=== PATIENT | female | born 1945 | race Two or more races ===

== ENCOUNTER 2018-12-15 22:26 | Inpatient (IN) | payer OTHER, MEDICAID ==
[~2018-12-15] VITALS: Ht 147.3 cm; Wt 59.0 kg
[2018-12-15 22:49] VITALS: Ht 147.3 cm; Wt 59.0 kg
--- NOTE | 2018-12-15 23:08 | NUR ---
PT C/O ABD X5 DAYS. PT REPORTS N/V X3 DAYS. PT STS THAT SHE GETS PARACENTESIS EVERY FRIDAY. PT REPORTS GETTING PAIN THE DAY AFTER LAST PARACENTESIS X7DAYS AGO. ABD SOFT AND DISTENDED. TENDERNESS NOTED IN ALL 4 QUADRANTS. PT REPORTS PAIN GENERALIZED 10/10 NON-RADIATING PAIN. AT [facility] WILL CONTINUE TO MONITOR.
--- NOTE | 2018-12-15 23:41 | NUR ---
X-RAY AT BEDSIDE
--- NOTE | 2018-12-15 23:48 | NUR ---
PT AWAKE AND ALERT, LAYING IN POSITION OF COMFORT. VSS, RESPS E/U, NAD NOTED AT THIS TIME. DAUGHTER AT BEDSIDE. CALL LIGHT W/IN REACH. WILL CONTINUE MONITOR.
[2018-12-16] VITALS (9 sets, daily range): BP systolic 83–113; BP diastolic 30–50
[2018-12-16 00:33] LABS: CALCIUM 8.9 mg/dL (8.5-10.1); CARBON DIOXIDE 13.5 mmol/L (21-32); CHLORIDE SERUM 100 mmol/L (98-107); CREATININE SERUM 3.4 mg/dL (0.6-1.0); GLUCOSE SERUM 142 mg/dL (74-106); POTASSIUM SERUM 4.5 mmol/L (3.5-5.1); SODIUM SERUM 129 mmol/L (136-145)
[2018-12-16 00:38] LABS: ALBUMIN 2.6 g/dL (3.4-5.0); ALKALINE PHOSPHATASE 281 U/L (46-116); ALT/SGPT 61 U/L (14-59); AST/SGOT 54 U/L (15-37); BILIRUBIN TOTAL 2.1 mg/dL (0.20-1.00); TOTAL PROTEIN, SERUM 5.9 g/dL (6.4-8.2)
--- NOTE | 2018-12-16 00:38 | NUR ---
PT AWAKE AND ALERT, LAYING IN POSITION OF COMFORT. 2 BED RAILS UP, BED IN LOW AND LOCKED POSITION. CALL LIGHT W/IN REACH. DAUGHTER AT BEDSIDE. VSS, RESPS E/U, NAD NOTED AT THIS TIME. WILL CONTINUE TO MONITOR.
[2018-12-16 00:47] LABS: BASOPHIL % 0 % (0-2); PLATELET COUNT 87 x10^3mcL (130-400); RED CELL DISTRIBUTION WIDTH 18.1 % (11.5-14.5)
[2018-12-16] MEDS ORDERED: ALDACTONE50 MG PO (01:28)
[2018-12-16] MEDS ORDERED: FUROSEMIDE20 MG PO (01:29)
[2018-12-16] MEDS ORDERED: BACTRIM DS1 TAB PO (01:30)
[2018-12-16] MEDS ORDERED: RANITIDINE HCL150 M1 PO (01:30)
[2018-12-16] MEDS ORDERED: SPIRONOLACTONE100 MG PO (01:30)
[2018-12-16] MEDS ORDERED: ONDANSETRON4 M3 PO (01:31)
[2018-12-16] MEDS ORDERED: PROPRANOLOL HCL10 MG PO (01:31)
[2018-12-16] MEDS ORDERED: GOOD SENSE OMEP20 MG PO (01:31)
[2018-12-16] MEDS ORDERED: TRAMADOL HCL50 MG PO (01:32)
[2018-12-16] MEDS ORDERED: [UNRECOGNIZED DRUG - REMARK] OP (01:33)
[2018-12-16] MEDS ORDERED: XIFAXAN550 M1 PO (01:33)
[2018-12-16] MEDS ORDERED: MIDODRINE HCL10 MG PO (01:33)
[2018-12-16 01:50] LABS: MAGNESIUM 2.2 mg/dL (1.8-2.4); PHOSPHOROUS 5.5 mg/dL (2.5-4.9)
[2018-12-16 01:56] LABS: T3 TOTAL 0.35 ng/mL
[2018-12-16 01:57] LABS: CHOLESTEROL/HDL RATIO 2.9
[2018-12-16 02:00] LABS: FREE T4 1.29 ng/dL (0.76-1.46)
[2018-12-16 02:03] LABS: FREE THYROXINE INDEX 1.7 ug/dL (1.4-4.5); T4(THYROXINE) 4.3 ug/dL (4.7-13.3)
--- NOTE | 2018-12-16 02:30 | NUR ---
REPORT GIVEN TO KWAME PUENTES
--- NOTE | 2018-12-16 03:30 | NUR ---
RECEIVED PT FROM ED, NO ACUTE DISTRESS. ORIENTED PT TO ROOM. BED IN LOWEST POSITION, SIDE RAILS UP X2, SEIZURE PRECAUTIONS IN PLACE, CALL LIGHT WITHIN REACH. WILL CONTINUE TO MONITOR.
--- NOTE | 2018-12-16 06:07 | NUR ---
PT SLEPT PERIODICALLY THROUGHOUT NIGHT, NO ACUTE DISTRESS. ALL NEEDS MET AND ATTENDED TO. NO SIGNIFICANT CHANGES. RIGHT CHEST PORTACATH PATENT AND INTACT. BED IN LOWEST POSITION, SIDE RAILS UP X2, CALL LIGHT WITHIN REACH. WILL ENDORSE CARE TO ONCOMING NURSE.
[2018-12-16 07:04] LABS: BASOPHIL % 0.1 % (0-2)
[2018-12-16 07:12] LABS: PLATELET COUNT 78 x10^3mcL (130-400); RED CELL DISTRIBUTION WIDTH 18.3 % (11.5-14.5)
[2018-12-16 07:14] LABS: CALCIUM 8.7 mg/dL (8.5-10.1); CARBON DIOXIDE 13.2 mmol/L (21-32); CHLORIDE SERUM 102 mmol/L (98-107); CREATININE SERUM 3.5 mg/dL (0.6-1.0); GLUCOSE SERUM 133 mg/dL (74-106); MAGNESIUM 2.2 mg/dL (1.8-2.4); PHOSPHOROUS 5.4 mg/dL (2.5-4.9); POTASSIUM SERUM 4.3 mmol/L (3.5-5.1); SODIUM SERUM 131 mmol/L (136-145)
--- NOTE | 2018-12-16 09:40 | NUR ---
DR HAYES AT BEDSIDE, CONSENT OBTAINED [facility] PATIENT TO PERFORM PARACENTESIS. PROCEDURE DONE, 3L OUTPUT. ASCITIS FLUID SENT DOWN FOR LAB/PATHO. PATIENT TOLERATED WELL.
[2018-12-16 13:23] LABS: SOURCE FLUID ASCITES
[2018-12-16 13:24] LABS: APPEARANCE FLUID TURBID; COLOR FLUID YELLOW; WBC FLUID 2150 /cumm
[2018-12-16 13:25] LABS: LYMPHOCYTE FLUID 3 %; MONOCYTE FLUID 7 %; RBC FLUID 1670 /cumm
[2018-12-16 13:29] LABS: microscopic required? NO
[2018-12-16 13:30] LABS: SOURCE FLUID ASCITES
[2018-12-16 13:51] LABS: urine erythrocyte NEGATIVE (NEGATIVE)
[2018-12-16 13:59] LABS: AMPHETAMINE QUAL UR NONE DETECTED (See below)
--- NOTE | 2018-12-16 18:15 | NUR ---
PATIENT WITH NO ACUTE DISTRESS, ABD DISTENDED/SOFT. PATIENT C/O NAUSEA AND ZOFRAN GIVEN. BANDAID TO RT SIDE ABD CDI. PORTACATH SITE WNL AND RUNNING 1/2NS WITH NABICARB AT 75ML/HR PER ORDER. DAUGHTER AND SON AT BEDSIDE. CALL LIGHT WITHIN RAECH. WILL CONT TO MONITOR AND ENDORSE TO NOC NURSE.
--- NOTE | 2018-12-16 19:36 | NUR ---
DAUGHTER WANTED TO SATYS OVERNIGHT,BRET SAYS OK.
--- NOTE | 2018-12-16 19:42 | NUR ---
SHIFT REASSESSMENT DONE.PATIENTA/O X 3.CONFUSED AT TIMES.BREATHING EASY AT THIS TIME.CANE AT BEDSIDE.1/2 NS WITH NA BICARB INFUSING.R CHEST PORT A CATH.ATB SCHEDULED.TELE 3 SR.R UPPER ARM INCISION,STITCHED 12/12 STEM CELL THERAPY.LOW H AND H, ON PROCRIT.BLE EDEMA NOTED.DAUGHTER CHANGED HER MIND,SHE WILL NOT STAY OVER TONIGHT,SAYS SHE IS SO TIRED.CALL LIGHT IN REACH FOR ASSISTANCE.
--- NOTE | 2018-12-16 22:11 | NUR ---
PM MEDS GIVEN,SWALLOWS WELL.DAUGHTER LEFT FOR TONIGHT.
[2018-12-17] VITALS (9 sets, daily range): BP systolic 86–112; BP diastolic 31–50
--- NOTE | 2018-12-17 02:00 | NUR ---
CHECKED AT INTERVALS FOR NEEDS AND SAFETY.IVF INFUSING WELL.
--- NOTE | 2018-12-17 06:15 | NUR ---
PATIENT I AND O MEASURED.DAUGHTER IS COMING TO VISIT.WANTED HER PAJAMA FROM HOME.
[2018-12-17 07:41] LABS: BASOPHIL % 0.1 % (0-2)
[2018-12-17 07:47] LABS: PLATELET COUNT 72 x10^3mcL (130-400); RED CELL DISTRIBUTION WIDTH 18.1 % (11.5-14.5)
[2018-12-17 07:54] LABS: CALCIUM 8.4 mg/dL (8.5-10.1); CARBON DIOXIDE 14.8 mmol/L (21-32); CHLORIDE SERUM 102 mmol/L (98-107); CREATININE SERUM 3.6 mg/dL (0.6-1.0); GLUCOSE SERUM 99 mg/dL (74-106); IRON 46 ug/dL (50-170); MAGNESIUM 2.1 mg/dL (1.8-2.4); PHOSPHOROUS 5.4 mg/dL (2.5-4.9); POTASSIUM SERUM 4.5 mmol/L (3.5-5.1); SODIUM SERUM 131 mmol/L (136-145)
[2018-12-17 08:06] LABS: TOTAL IRON BINDING CAPACITY 77 ug/dL (250-450)
--- NOTE | 2018-12-17 08:20 | NUR ---
PATIENT ALERT/ORIENTED, SITTING UP EDGE OF BED, TOLERATING BREAKFAST MEAL WELL. SZ PREC IN PLACE, BED RAILS PADDED. TELE [address], DENIES CP. LUNGS SOMEWHAT DIM TO BASES OTHERWISE CTA, NO RESP DISTRESS NOTED ON RA. BREATHING E/U. PERIPHERLA PULSES PALAPBLE, BLE EDEMA +2. BOWEL SOUNDS ACTVE, ABD DISTENDED AND FIRM, ABD TENDER. BANDAID TO RT SIDE ABDOMEN CDI. RT UPPER ARM WITH STITCHED INCISION HEALING, LIBRA. CENTRAL LINE PORTACATH TO RT UPPER CHEST SITE WNL. CALL LIGHT WITHIN REACH. PER DR HAYES, DC IV FLUIDS AND ORDER MADE FOR PARACENTESIS TOMORROW MORNING. PATIENT AND DAUGHTER AT BEDSIDE AWARE.
--- NOTE | 2018-12-17 11:40 | NUR ---
SPOKE TO DR LOCKETT. ORDER RECIEVED FOR OKAY TO USE CENTRAL LINE PORT. LAB AT BEDSIDE OBTAINING BLOOD DRAWS, ATTEMPTED TO DRAW BLOOD THROUGH CENTRAL LINE. NS FLUSHING WELL BUT NO BLOOD RETURN. TYPE &SCREEN BLOOD FOR LAB OBTAINED. DAUGHTER AT BEDSIDE REQUESTING FOR PATIENT TO DIP FEET IN SALT WATER "TO HELP WITH SWELLING", PER DR LOCKETT OKAY FOR PATIENT. WAITING FOR PRBC UNITS TO BE READY BEFORE TRANSFUSING PER ORDER.
[2018-12-17 12:50] LABS: ALKALINE PHOSPHATASE 262 U/L (46-116); AST/SGOT 36 U/L (15-37); BILIRUBIN TOTAL 1.88 mg/dL (0.20-1.00); CALCIUM 8.1 mg/dL (8.5-10.1); CARBON DIOXIDE 14.6 mmol/L (21-32); CHLORIDE SERUM 100 mmol/L (98-107); CREATININE SERUM 3.6 mg/dL (0.6-1.0); GLUCOSE SERUM 154 mg/dL (74-106); POTASSIUM SERUM 4.3 mmol/L (3.5-5.1); SODIUM SERUM 128 mmol/L (136-145)
[2018-12-17 13:04] LABS: ALBUMIN 2.3 g/dL (3.4-5.0); TOTAL PROTEIN, SERUM 5.5 g/dL (6.4-8.2)
[2018-12-17 13:12] LABS: ALT/SGPT 45 U/L (14-59)
--- NOTE | 2018-12-17 13:22 | NUR ---
PER DR CHOI (NEPHRO), CONTINUE IV FLUID THERAPY 1/2NS + NA BICARB AT 75ML/HR. FLUIDS REORDERED. IV RESTARTED ON PATIENT. PATIENT TOLERATED LUNCH MEAL WELL, ATE ABOUT 50%. REPOSITIONED IN BED TO COMFORT. DAUGHTER AT BEDSIDE.
[2018-12-17 14:04] LABS: BASOPHIL % 0 % (0-2); PLATELET COUNT 85 x10^3mcL (130-400); RED CELL DISTRIBUTION WIDTH 18.1 % (11.5-14.5)
--- NOTE | 2018-12-17 14:40 | NUR ---
BLOOD TRANSFUSION CONSENT SIGNED BY PATIENT, PRBC UNIT 1 OF 2 PICKED UP FROM BLOOD BANK. VERIFIED WITH SECONDARY RN MEKHI AT BEDSIDE. PRE VITALS TAKEN AND TYLENOL/BENEDRYL GIVEN TO PATIENT. PROCEDURE EXPLAINED TO PATIENT AND DAUGHTER AT BEDSIDE, VERBALIZED UNDERSTANDING. IV SITE PORTACATH WNL. NO ABNORMAL/ADVERSE REACTIONS OBSERVED AFTER 15 MINUTES, VITALS TAKEN AND CHARTED. RATE INCREASED. PATIENT TOLERATING WELL SO FAR. WILL CONT TO MONITOR.
--- NOTE | 2018-12-17 15:10 | NUR ---
PATIENT FOUND IN BED WITH HUB NEEDLE DISLODGED AND MODERATE AMOUNT BLOOD LEAKAGE FROM INFUSION. DAUGHTER AT BEDSIDE STATES SHE DOES NOT KNOW WHAT HAPPENED SHE WAS ASLEEP ON CHAIR. PATIENT CLEANSED, LINENS CHANGED. NO ACTIVE BLEEDING OBSERVED TO CENTRAL PORT SITE, MILD ECCHYMOSIS NOTED . PER PATIENT, SHE SAID SHE WAS JUST TRYING TO REMOVE THE ADHESIVE/TAPE OF PORTACATH IT WAS BOTHERING HER AND PAINFUL SOMETIMES. NEW HUB NEEDLE APPLIED, NS FLUSHED, SITE WNL. BLOOD TRANSFUSION RESTARTED. WILL CONT TO MONITOR.
--- NOTE | 2018-12-17 17:12 | NUR ---
SPOKE TO PHARMACIST REGARDING FERRLICIT IV, RECOMMENDED TO FINISH BLOOD TRANSFUSION UNITS BEFORE GIVING FERRLICIT. WILL ENDORSE TO NOC NURSE TO CALL PHARMACY WHEN SECOND UNIT PRBC IS ALMOST COMPLETE TO PROMP THEM TO PREPARE FERRLICIT IV IT IS GOOD FOR ONLY 4 HOURS.
--- NOTE | 2018-12-17 18:10 | NUR ---
FIRST UNIT PRBC TRANSFUSION COMPLETE, PATIENT TOLERATED WELL. CENTRAL PORTACATH SITE WNL. DENIES ANY ABNORMAL/ADVERSE REACTIONS. SECOND UNIT PRBC RETRIEVED FROM BLOOD BANK, VERIFIED WITH SECOND RN AT BEDSIDE. NO REACTION AFTER 15MINUTES. WILL CONT TO MONITOR AND ENDORSE TO NOC NURSE.
--- NOTE | 2018-12-17 19:55 | NUR ---
SHIFT REASSESSMENT DONE.PATIENT ALERT AND ORIENTED.PATIENT RECEIVING PRBC AT THIS TIME,SECOND UNIT.NO REACTION SO FAR.TELE 3 SR.DISTENDED ABD,FIRM.FOR PARACENTESIS IN AM,ALSO PIGTAIL INSERTION.,R UPPER ARM INCISION STITCHED 12/12 STEM CELL THERAPY.CALL LIGHT IN REACH.
--- NOTE | 2018-12-17 20:27 | NUR ---
DR COPPOLA MADE AWARE,LASIX AFTER BLOOD TRANSFUSION,NONE ORDER SINCE START OF PRBC.
--- NOTE | 2018-12-17 21:23 | NUR ---
PRBC COMPLETED WITH NO INCIDENT,LASIX GIVEN ALSO.IV FLUSHES EASILY.
--- NOTE | 2018-12-17 21:25 | NUR ---
FERLICIT INFUSING AT THIS TIME,ALL PM MEDS GIVEN WITHOUT ANY INCIDENT.DAUGHTER STAYING FOR A FEW HOURS TONIGHT.PATIENT MADE AWARE OF PARACENTESIS IN AM AND PIG TAIL INSERTION.
[2018-12-17 21:57] LABS: BASOPHIL % 0 % (0-2); PLATELET COUNT 76 x10^3mcL (130-400); RED CELL DISTRIBUTION WIDTH 17.6 % (11.5-14.5)
--- NOTE | 2018-12-18 02:38 | NUR ---
ASSISTED TO BSC BY UTILITY WORKER PRODUCTION,VOIDING.IVF 1/2 NS BICARB INFUSING WELL.,R CHEST PORTACATH.
[2018-12-18 05:35] VITALS: BP 114/50
--- NOTE | 2018-12-18 05:44 | NUR ---
PATIENT REMAINS NPO FOR US ABD TODAY.US GUIDED PARACENTESIS,AND PIGTAIL TODAY,CONSENT IN CHART.WILL REPORT TO DAY SHIFT TO JUST HOLD THE TRAY/FOOD.DAUGHTER WILL BE HERE EARLY.
[2018-12-18 06:28] LABS: BASOPHIL % 0.1 % (0-2)
[2018-12-18 06:32] LABS: PLATELET COUNT 68 x10^3mcL (130-400); RED CELL DISTRIBUTION WIDTH 17.7 % (11.5-14.5)
[2018-12-18 06:47] LABS: ALKALINE PHOSPHATASE 242 U/L (46-116); ALT/SGPT 36 U/L (14-59); AST/SGOT 32 U/L (15-37); BILIRUBIN DIRECT 1.71 mg/dL (0.0-0.2); BILIRUBIN TOTAL 3.56 mg/dL (0.20-1.00); CALCIUM 8.2 mg/dL (8.5-10.1); CHLORIDE SERUM 99 mmol/L (98-107); CREATININE SERUM 3.3 mg/dL (0.6-1.0); GLUCOSE SERUM 85 mg/dL (74-106); MAGNESIUM 2.1 mg/dL (1.8-2.4); PHOSPHOROUS 4.9 mg/dL (2.5-4.9); POTASSIUM SERUM 4.4 mmol/L (3.5-5.1); SODIUM SERUM 130 mmol/L (136-145)
[2018-12-18 07:01] LABS: TOTAL PROTEIN, SERUM 5.1 g/dL (6.4-8.2)
--- NOTE | 2018-12-18 07:39 | NUR ---
RECEIVED ASLEEP BUT AROUSABLE. NO ACUTE RESP. DISTRESS NOTED. VS STABLE. NO C/O PAIN OR DISCOMFORT AT THIS TIME. IVF INFUSING WELL AND SITE CLEAR. CALL LIGHT WITHIN REACH. WILL CONTINUE WITH PLAN OF CARE.
[2018-12-18 08:14] VITALS: BP 98/53
--- NOTE | 2018-12-18 11:30 | NUR ---
DRESSING TO RT PORTACATH CHANGED. CATH FLUSHED AND PATENT.
[2018-12-18 11:49] VITALS: BP 114/49
--- NOTE | 2018-12-18 13:00 | NUR ---
PT LEFT TO RADILOGY FOR PARACENTESIS WITH PIGTAIL PLACEMENT. LEFT IN NO ACUTE DISTRESS. AWAKE, ALERT AND ORIENTED. NO /O PAIN OR DISCOMFORT.
[2018-12-18 15:16] VITALS: BP 117/57
--- NOTE | 2018-12-18 15:19 | NUR ---
Initial Nutrition Assessment: Viviana Briceñoia [place] Rm 244B Dx: Kidney Failure, Hepatic Encephalopathy, Acities PMHx: DM, HTN, Chronic kidney disease, Chronic liver disease PSHx: Cholecystecomy, other (hysterectomy) Labs:Na 130L, CO2 18.0L, BUN 66.0H, Creat. 3.3H, Alb. 2.0L, Ca 8.2L, Bili. 3.56H, WBC 3.7L, Hgb. 10.7L, Hct 30L Meds: Colace, Humulin, Levaquin, Procrit, Prilosec, Sodium bicarbonate, Zofran Diet: NPO due to surgery today (12/18) PO intake since admission: (12/16) Renal 85%, (12/17) Renal 50% Ht: 147.3cm, 57in Wt: 59kg, 129# BMI: 27.2kg/m2 (Overweight) Bed scale: 129# IBW: 135#, 61kg %IBW: 95% UBW: pt was not sure Age: 73/F Food Allergies: NKFA Skin: R upper arm incision stitched/stem cell therapy. Viral: 19 Edema: BLE edema GI: Last BM: 12/17/18 Per H&P: This patient is a 73 year old female with PMH of DM, HTN, CKD and liver disease presented to the ED with abdominal pain and abdominal distension. Abdominal pain is difffuse, 7/10 intensity, constant pain. Per her daughter, patient appeared to be little confused before she came into the hospital. Patient c/o nausea and vomitting 2 days ago. No hematemesis or krystal. No c/o fever, loss of consciousness, dizziness, chest pain, SOB, headache, chills. Patient's daughter stated that the patient gets abdominal fluid tap every week and she was recently admitted in the hospital for the treatment of hepatic encephalopathy. Patient is from [place] to visit her daughter and supposed to go back tomorrow. Patient had blood tranfusion during last admission 10 days before in [place]. Patient has h/o hepatitis but doesn't know the type. No h/o dialysis. RD Note (12/18/18): Pt stated she isn't eating and meats right now because they hurt her stomach. Pt said she mostly eats soups and vegetables. Pt said she usually cooks herself her own meals. Pt said she has tried to follow a diet low in sodium and protein for her kidneys, but that she doesn't always have an appetite because her stomach hurts her. Discussed checking the sodium in the soups she is making and advised not to add salt to them. Also encouraged low protein foods for her kidneys. Problem with: N: No V: No D: No C: No Problems with: Chewing: None Swallowing: pt stated sometimes it hurts to swallow Current appetite: Fair Recent wt change: None %wt change: None Vitamin/Supplement use: None Special diet at home: Regular Physical activity: None Nutrition education given (specify specific nutrition education and handout given): NCM on Chronic Kidney Disease Tips with no dialysis in [place]. Food-drug interactions: Levaquin: do not take with magnesium, aluminum, calcium, or iron (can interrupt digestion) Education given: Yes Estimated Nutritional Needs Based on actual body weight (59kg) Energy: 1770-1880kcal/day (30-32kcal/kg for kidneys, no dialysis and liver) Protein: 35-47g/day (0.6-0.8g/kg for kidneys, no dialysis and liver ) Fluid: per Nutrition Diagnosis: 1. Altered nutrition-related laboratory values r/t pt consuming high sodium soups and sometimes not eating because of pain aeb BUN 66, Creatinine 3.3 and Albumin 2.0. Intervention 1. Recommend advancing to renal diet with 2gNa once medically safe to do so. 2. Education given on Chronic Kidney Disease tips with no dialysis in [place]. Monitor/Evaluate Goal: PO intake at least 75% of estimated needs Monitor: PO intake, Labs, GI function MR F/U 12/21-12/23
--- NOTE | 2018-12-18 15:33 | NUR ---
PT BACK FROM RADIOLOGY AWAKE, ALERT AND ORIENTED. NO ACUTE RESP. DISTRESS NOTED. VS WNL. PT C/O PAIN AT THE INSICION SITE. MEDICATED WITH TRAMADOL PER ORDER. PIGTAIL NOTED TO RT LQ WITH DRESSING INTACT. FAMILY AT BEDSIDE. WILL CONT. TO MONITOR.
[2018-12-18] MEDS ORDERED: SOD650 PO (16:52)
[2018-12-18 17:41] VITALS: BP 117/57
--- NOTE | 2018-12-18 18:48 | NUR ---
REMAINS IN NO DISTRESS. AWAKE AND ALERT. NO CHANGES IN VS. NO C/O PAIN OR DISCOMFORT AT THIS TIME. FAMILY AT BEDSIDE. CALL LIGHT WITHIN REACH. WILL BE ENDORSED TO INCOMING SHIFT.
--- NOTE | 2018-12-18 19:25 | NUR ---
RECEIVED PT FROM PREVIOUS SHIFT NURSE. PT AOX4. DENIES REYES/DIZZINESS. ON TELE #3, NSR. DENIES CP/PRESSURE. DENIES SOB/DIFFICULTY BREATHING. R. PORT A CATH IN PLACE. BED IN LOWEST POSITION. CALL LIGHT WITHIN REACH. WILL CONTINUE TO MONITOR.
[2018-12-18 21:28] VITALS: BP 104/49
--- NOTE | 2018-12-18 23:09 | NUR ---
CARE ENDORSED TO DELORIS PALMER.
--- NOTE | 2018-12-18 23:10 | NUR ---
RECEIVED REPORT FROM YARA PUENTES FOR CONTINUATION OF CARE. PATIENT FOR DISCHARGE TO HOME. AWAITING FOR TRANSPORTATION. AWAKE, ALERT IN BED. RESPIRATION EVEN AND UNLABORED. COMPLAIN OF TENDERNESS TO RIGHT PORTACATH. FAMILY MEMBER AT THE BEDSIDE. WILL CONTINUE TO MONITOR.
--- NOTE | 2018-12-18 23:30 | NUR ---
PATIENT DISCHARGE TO HOME VIA [facility] TRANSPORTATION. REMOVED PORTACATH ACCESS. DISCONTINUED MONITOR. DISCHARGE INSTRUCTION EXPLAINED AND PACKET GIVEN BY YARA PUENTES.
== END 2018-12-18 23:40 | disposition hospice, home (50) | DRG 441 ==
LOC: ED 22:26 → DU 12-16 01:05
PROVIDERS: Emergency Medicine; Internal Medicine; Internal Medicine Nephrology; ADMIT General Practice
PROC: 0W9G3ZZ Drainage of Peritoneal Cavity, Percutaneous Approach (ICD-10-PCS; principal; 2018-12-16)
PROC: 0W9G3ZZ Drainage of Peritoneal Cavity, Percutaneous Approach (ICD-10-PCS; 2018-12-18)
PROC: 0WHG33Z Insertion of Infusion Device into Peritoneal Cavity, Percutaneous Approach (ICD-10-PCS; 2018-12-18)
DX: K72.90 Hepatic failure, unspecified without coma (principal); K76.7 Hepatorenal syndrome; E43 Unspecified severe protein-calorie malnutrition; N17.0 Acute kidney failure with tubular necrosis; E87.2 Acidosis; I12.0 Hypertensive chronic kidney disease with stage 5 chronic kidney disease or end stage renal disease; N18.5 Chronic kidney disease, stage 5; R18.8 Other ascites; E87.1 Hypo-osmolality and hyponatremia; E11.21 Type 2 diabetes mellitus with diabetic nephropathy; E11.22 Type 2 diabetes mellitus with diabetic chronic kidney disease; K74.60 Unspecified cirrhosis of liver; D69.59 Other secondary thrombocytopenia; E83.39 Other disorders of phosphorus metabolism; K42.9 Umbilical hernia without obstruction or gangrene; D63.1 Anemia in chronic kidney disease; Z68.26 Body mass index [BMI] 26.0-26.9, adult; Z79.84 Long term (current) use of oral hypoglycemic drugs
CPT/HCPCS: 49083; 82962; 83880; 84439; 87116; 87206; 88344; C1729; G0378; J0885-EC; J1956; J2001; J2916; J3490; J7030; J7050; P9016; Q0092; Q0162; Q0163

== ENCOUNTER 2019-01-11 10:02 | Emergency (ER) | payer OTHER, MEDICAID ==
[~2019-01-11] VITALS: Ht 157.5 cm; Wt 44.5 kg
[~2019-01-11 10:02] MED LIST: ALDACTONE50 MG PO; BACTRIM DS1 TAB PO; FUROSEMIDE20 MG PO; GOOD SENSE OMEP20 MG PO; MIDODRINE HCL10 MG PO; ONDANSETRON4 M3 PO; PROPRANOLOL HCL10 MG PO; RANITIDINE HCL150 M1 PO; SOD650 PO; SPIRONOLACTONE100 MG PO; TRAMADOL HCL50 MG PO; XIFAXAN550 M1 PO; [UNRECOGNIZED DRUG - REMARK] OP
[2019-01-11 10:08] VITALS: Ht 157.5 cm; Wt 44.5 kg
[2019-01-11 13:24] VITALS: BP 117/67
== END 2019-01-11 13:24 | disposition home or self-care (01) ==
LOC: ED 10:02
DX: T83.028A Displacement of other urinary catheter, initial encounter (principal); K74.60 Unspecified cirrhosis of liver; E11.22 Type 2 diabetes mellitus with diabetic chronic kidney disease; N18.6 End stage renal disease; I12.0 Hypertensive chronic kidney disease with stage 5 chronic kidney disease or end stage renal disease; Z88.0 Allergy status to penicillin

== ENCOUNTER 2019-01-18 11:09 | Inpatient (IN) | payer OTHER, MEDICAID ==
[2019-01-18] VITALS (8 sets, daily range): BP systolic 48–112; BP diastolic 19–38; Ht 149.9 cm; Wt 52.4 kg
[~2019-01-18] VITALS: Ht 149.9 cm; Wt 52.4 kg
--- NOTE | 2019-01-18 11:09 | NUR ---
PT BIBA AT 1105, FOR ALOC, PER MEDICS SINCE APPROX "NOON" YESTERDAY AFTER BEING GIVEN PRN DOSE OF LORAZAPAM, BS IN ROUTE:112, PT HAS HX OF LIVER AND PANCREATIC FAILURE. PER MEDICS PT IS ON HOSPICE AND IS A FULL CODE. PT ON BAG-VALVE MASK, RESPS SHALLOW AND LABORED, COLOSTOMY BAG NOTED TO RLQ ABD WITH STOMA APPEARING TO BE PARTIALLY CLOSED. PT IMMEDIATELY PLACED ON FULL CM, DR MONZON AT BEDSIDE FOR MSE.
--- NOTE | 2019-01-18 11:11 | NUR ---
PER DR MONZON, 1L OF NS, STARTED BY MEDICS [employer]ODU[employer] SALES REPRESENTATIVE, TO BE FINISHED, NS INFUSING TO PATENT R ANKLE IV. DR MONZON, KIKA RN, KHADIJAH PUENTES, X3 RTS, EMT MINISTERIO, AND MYSELF AT BEDSIDE. 1113: PER VERBAL ORDERS OF DR MONZON AMP OF 10% CALCIUM CARBONATE GIVEN IVP BY KIKA PUENTES TO R ANKLE. 1115: 10MG OF ETOMIDATE GIVEN BY KHADIJAH, IVP PRIOR TO INTUBATION BY DR MONZON, PER DR MONZON. 1118: AMP OF SODIUM BICARB GIVEN PER DR MONZON, BY DELORIS LUCIO, PT INTUBATED BY DR MONZON, RT BAGGING PT. 1119: PT IN PULSELESS V-TACH ON VFX ARTIST, PER DR MONZON, PT SHOCKED AT 200J. CPR INITIATED 1121: NO PULSE, CPR CONTINUED, EPI GIVEN IVP, BY KHADIJAH PUENTES, PER DR MONZON. 1122: CPR CONTINUED, PT SHOCKED AT 200J, CPR CONTINUED, PER DR MONZON. 1123: PT IN TORSADES, 1GM IVP MAG GIVEN BY DELORIS LUCIO PER DR MONZON. CPR CONTINUED, NO PULSE NOTED, EPI GIVEN. 1125: NO PULSE, RESUMED CPR. 1126: SHOCKED AT 200J, PER DR MONZON. 1127: NO PULSE, CPR RESUMED. 1129: NO PULSE, EPI GIVEN, CPR RESUMED. 1130: PULSELESS V-TACH, SHOCKED AT 200J 1131: +PULSE 1134: 300MG OF AMIODARONE GIVEN,PER DR MONZON.
--- NOTE | 2019-01-18 11:12 | NUR ---
DR MONZON AT BEDSIDE FOR INTUBATION, X3 RTS, REA, KIKA RNS, AND EMT RUEBN AT BESIDE.
--- NOTE | 2019-01-18 11:49 | NUR ---
18G IV STARTED TO L EJ BY DR MONZON.
--- NOTE | 2019-01-18 12:00 | NUR ---
ACCOMPANIED DR MONZON HE SPOKE WITH PT'S FAMILY AND FRAOOQ COCHRANW, MANAGER MAINTENANCE OF [facility], WHOM ALSO TRANSLATED FOR DR MONZON. DR MONZON GAVE AN UPDATE ON PATIENT'S CURRENT STATUS, PER FAMILY, IN THE EVENT THAT PT LOSES PULSES ONCE AGAIN, WOULD NOT LIKE TO STAFF TO DO CHEST COMPRESSIONS, "ONLY MEDICATIONS". PT'S SON, DAUGHTER INOCENSE, AND ALL AGREED THAT PT IS ONLY TO HAVE "MODIFIED TREATMENT".
--- NOTE | 2019-01-18 12:24 | NUR ---
XRAY AT BEDSIDE.
--- NOTE | 2019-01-18 12:35 | NUR ---
INCREASED LEVOPED TO 4MCG/MIN.
[2019-01-18 12:47] LABS: BASOPHIL % 0.2 % (0-2)
[2019-01-18 12:52] LABS: PLATELET COUNT 54 x10^3mcL (130-400); RED CELL DISTRIBUTION WIDTH 20.4 % (11.5-14.5)
[2019-01-18 13:02] LABS: ALKALINE PHOSPHATASE 362 U/L (46-116); ALT/SGPT 114 U/L (14-59); AST/SGOT 225 U/L (15-37); BILIRUBIN TOTAL 3.57 mg/dL (0.20-1.00); CALCIUM 9.8 mg/dL (8.5-10.1); CHLORIDE SERUM 102 mmol/L (98-107); SODIUM SERUM 133 mmol/L (136-145)
--- NOTE | 2019-01-18 13:16 | NUR ---
D50 AMP GIVEN IVP, PER VERBAL ORDERS OF DR MONZON.
[2019-01-18 13:17] LABS: ALBUMIN 1.2 g/dL (3.4-5.0); CHOLESTEROL 101 mg/dL (<200); HDL CHOLESTEROL 18 mg/dL (40-60); TOTAL PROTEIN, SERUM 4.1 g/dL (6.4-8.2)
[2019-01-18 13:18] LABS: CREATININE SERUM 4.3 mg/dL (0.6-1.0); GLUCOSE SERUM 44 mg/dL (74-106)
[2019-01-18 13:21] LABS: POTASSIUM SERUM 8.3 mmol/L (3.5-5.1)
[2019-01-18 14:20] LABS: rbc morphology (normal/abnorm) NORMAL (NORMAL)
--- NOTE | 2019-01-18 14:25 | NUR ---
OKSANA JEFFRIES LIFE SCIENCE TEACHER OF [facility], GAVE INFO TO MORTARY ARRANGEMENTS FOR PT: [place] [facility] [address], [place] [address]
--- NOTE | 2019-01-18 14:27 | NUR ---
RESIDENTS AT BEDSIDE FOR MSE OF PT WITH FAMILY.
--- NOTE | 2019-01-18 15:06 | NUR ---
REPORT GIVEN TO DELORIS ANDREW TO ASSUME CARE OF PT.
--- NOTE | 2019-01-18 15:15 | NUR ---
RECEIVED THE PATIENT FROM ER DEPT VIA [facility]. THE PATIENT UNRESPONSIVE TO ANY STIMULI WITH AGONAL BREATHING. PATIENT REMAINS INTUBATED WITH ETT 7.5 SECURED AT 22CM AT LIPLINE. ETT TO VENT VIA VCV/AC MODE: FIO2 60%, RATE 16, VT 450, PEEP 5. OGT IN PLACE AND SECURED TO ETT. OGT PLACEMENT WAS VERIFIED WITH SOME AIR BOLUS. NO RESIDUAL AT THIS TIME. IV SITE TO LEFT IJ INTACT AND IN USE. CHATA-CATH IS AT RIGHT UPPER CHEST AND IN USE. PATIENT IS ON LEVOPHED AT 30MCG/MIN. VERSED AT 1MG/HR. VERSED WAS HELD AFTER PATIENT TRANSFERRED TO BED. TELE # 3 APPLIED TO THE PATIENT, WHICH READ SINUS RHYTHMS AT THIS TIME. COLOSTOMY BAG TO RIGHT LOWER ABDOMEN WITH NO STOOL. CHRISTENSEN CATH TO GRAVITY DRAINING DARK TIKI URINE. SIDE RAILS UP X3. BED IS AT LOWEST POSITION. THE FAMILY IS AT BEDSIDE.
--- NOTE | 2019-01-18 15:40 | NUR ---
DR. OTERO IS AT BEDSIDE ASSESSING THE PATIENT.
--- NOTE | 2019-01-18 15:45 | NUR ---
DR. OTERO AND DR. BLOOM ARE HAVING MEETING WITH THE FAMILY.
--- NOTE | 2019-01-18 16:00 | NUR ---
DR OTERO AND DR DUPREE DISCUSSED W/ 4 OF PT'S DAUGHTERS AND 1 GRANDDAUGHTER ABOUT PT PROGNOSIS AND THEIR WISHES FAR PLAN OF CARE GOES. FAMILY GIVEN TIME TO DECIDE, NO CONCLUSION AT THIS TIME.
--- NOTE | 2019-01-18 16:40 | NUR ---
PER DR. BLOOM, NO URINE SAMPLE NOR SWAB FROM NARES FOR MRSA NEEDED; PATIENT'S STATUS CHANGED TO DNR AND PALLIATIVE CARE.
--- NOTE | 2019-01-18 17:14 | NUR ---
PER DR. BLOOM'S INSTRUCTION, LEVOPHED WAS HELD AND MORPHINE DRIP WAS INITIATED AT 1MG/HR. FOR PALLIATIVE CARE.
--- NOTE | 2019-01-18 18:47 | NUR ---
THE PATIENT REMAINS ON MORPHINE DRIP AT 1MG/HR FOR PALLIATIVE CARE. HR IS IN 40S, AND RR <20. WILL ENDORSE CARE TO ONCOMING RN.
--- NOTE | 2019-01-18 19:10 | NUR ---
RECEIVED REPORT FROM MAGDALENO PUENTES. WILL RESUME CARE.
--- NOTE | 2019-01-18 19:20 | NUR ---
RECEIVED PT INTUBATED WITH NO SEDATION. PT IS UNRESPONSIVE TO ALL STIMULI. PUPILS 5MM FIXED. 7.5 ETT AT 22CM LL INTACT AND SECURED. OGT SECURED TO ETT. VENT ON VCV-AC MODE WITH SETTINGS OF VT 450, FIO2 60%, R 16, PEEP 5. AGONAL BREATHING. COARSE CRACKLES TO BILATERAL UPPER LOBES AND DIMINISHED TO BASES. MORPHINE GTT INFUSING AT 1MG/HR. LEJ CVC WNL, DRESSING CDI. CHATA-CATH TO R UPPER CHEST. R ANKLE IV SITE, SALINE LOCKED, DRESSING CDI. NO EDEMA NOTED. SKIN COOL TO TOUCH. CAP REFILL >3 SEC. COLOSTOMY BAG TO R LOWER QUADRANT IN PLACE, NO STOOL NOTED. CHRISTENSEN CATHETER IN PLACE DRAINING VIA GRAVITY MINIMAL TIKI URINE. BED IN LOW POSITION. FAMILY AT BEDSIDE. WILL CONTINUE TO MONITOR.
--- NOTE | 2019-01-18 22:45 | NUR ---
Pt was noted with low heart rate in 30's , I called all family members at the bedside and comforted them during this tragic time. Pt remains on comfort care and FULL DNR. I asked them to call all their family members at this time. Will continue to monitor.
--- NOTE | 2019-01-18 23:02 | NUR ---
At this time patient with no pulse, no respiration, no blood pressure. elevator constructor supervisor notified and Dr Bermudez was called to pronounced pt at this time. Family member at the bedside. Pt code status remain comfort care/ FULL DNR.
--- NOTE | 2019-01-18 23:15 | NUR ---
Spoke to [employer] at this time. Pt does not meet the criteria to be a donor at this time. Donor number [id number].
--- NOTE | 2019-01-18 23:25 | NUR ---
DESTINEE FROM ADMITTING NOTIFIED THAT PT AT 230.
--- NOTE | 2019-01-18 23:30 | NUR ---
Called [facility] at this time. Spoke to Ashia, she documented all information and said the next available Ririe will give us a call back.
--- NOTE | 2019-01-19 | NUR ---
Spoke to Area Director Deputy Krishna Muhammad at this time. Deputy Krishna Muhammad also spoke to family member regarding case. Deputy Krishna Muhammad closed the case at this time. .
--- NOTE | 2019-01-19 07:53 | NUR ---
ECHOCARDIOGRAM NOT DONE-DISCHARGED
== END 2019-01-19 01:29 | disposition expired | DRG 208 ==
LOC: ED → IC 14:18
PROVIDERS: Emergency Medicine; ADMIT General Practice
PROC: 5A1935Z Respiratory Ventilation, Less than 24 Consecutive Hours (ICD-10-PCS; principal; 2019-01-18)
PROC: 0BH17EZ Insertion of Endotracheal Airway into Trachea, Via Natural or Artificial Opening (ICD-10-PCS; 2019-01-18)
DX: J96.00 Acute respiratory failure, unspecified whether with hypoxia or hypercapnia (principal); N18.6 End stage renal disease; J18.9 Pneumonia, unspecified organism; E43 Unspecified severe protein-calorie malnutrition; I21.4 Non-ST elevation (NSTEMI) myocardial infarction; I85.11 Secondary esophageal varices with bleeding; I12.0 Hypertensive chronic kidney disease with stage 5 chronic kidney disease or end stage renal disease; E87.1 Hypo-osmolality and hyponatremia; E87.2 Acidosis; I47.2 Ventricular tachycardia; E11.22 Type 2 diabetes mellitus with diabetic chronic kidney disease; K74.60 Unspecified cirrhosis of liver; K72.90 Hepatic failure, unspecified without coma; D69.59 Other secondary thrombocytopenia; E11.65 Type 2 diabetes mellitus with hyperglycemia; E87.5 Hyperkalemia; Z99.2 Dependence on renal dialysis; Z68.25 Body mass index [BMI] 25.0-25.9, adult; Z79.84 Long term (current) use of oral hypoglycemic drugs
CPT/HCPCS: 36600; 83880; G0378; J1815; J1956; J2250; J2270; J3490; J7030; J7050; Q0092